=== PATIENT | male | born 1970 | race Caucasian/White ===

== ENCOUNTER 2016-04-08 13:21 | Emergency (ER) | payer OTHER ==
[~2016-04-08] VITALS: Ht 175.3 cm; Wt 87.2 kg
[~2016-04-08 13:21] MED LIST: ALLO100T PO; BENZ100C6 PO; FLUO20CA36 PO; GUAI100S6 PO; WLLSR150 PO
[2016-04-08 13:29] VITALS: TEMP 37.2; Ht 175.3 cm; Wt 87.2 kg
[2016-04-08] MEDS ORDERED: LORAZEPAM 1 MG TAB SL STA (13:41)
[2016-04-08] MEDS ORDERED: ATV/1 PO (15:15)
[2016-04-08 15:30] VITALS: BP 146/90; PULSE 74; O2SAT 97
--- NOTE | 2016-04-08 18:26 | EMERGENCY ROOM VISIT NOTE ---
History Report prepared by Mely: Marlin Mejia Under the Supervision of: Dr. Richy Purvis M.D. First contact with patient: 13:35 Chief Complaint: ANXIETY Stated Complaint: PANIC ATTACK History of Present Illness The patient is a 45 year old male who presents to the Emergency Room with complaints of an episode of anxiety which started today. The patient reports that he was at work when suddenly he began to feel shaky, sweaty, and disoriented. He believes that there was no direct trigger. He mentions that this has happened before. He reports that previously he had been on anxiety and depression medications, but his psychiatric serviced got discontinued, forcing him to wean off his medication. He used to take Prozac and Wellbutrin regularly and Xanax as needed. He estimates that he has not had a Xanax in 6-8 months. The patient drove himself to the ED, but reports that he is still worked up. He reports that he recently had a cold with cough and congestion. He states that due to his problems with alcohol in the past, he does not drink often anymore, but reports that he had some alcohol a couple days ago because he was feeling "worked up". The patient denies any drug use today. Pt denies LOC, headache, fevers, chills, visual changes, neck pain, chest pain, breathing difficulties, nausea, vomiting, abdominal pain, back pain, melena, hematochezia, urinary symptoms, numbness, weakness, lymphadenopathy, rash, or other complaints. Source of History: patient Onset: earlier today Position: other (global) Quality: other (anxiety) Timing: other (epi) Associated Symptoms: + diaphoresis Note: Pt felt shaky and disoriented. Review of Systems See HPI for pertinent positives and negatives. A total of ten systems were reviewed and were otherwise negative. Past Medical & Surgical Medical Problems: (1) ALCOH DEP NEC/NOS-UNSPEC (2) ALCOHOL WITHDRAWAL (3) ANXIETY STATE NOS (4) Cellulitis (5) Gout Family History Patient reports no known family medical history. Social History Smoking Status: Never Smoker Alcohol Use: occasionally Drug Use: none Marital Status: single Housing Status: lives alone Occupation Status: employed Current/Historical Medications Scheduled Allopurinol (Zyloprim), 100 MG PO BID Bupropion HCl (Bupropion HCl Sr), 150 MG PO BID Scheduled PRN Lorazepam (Ativan), 1 MG PO Q6H PRN for Anxiety/Agitation Allergies Coded Allergies: No Known Allergies (Unverified , 04/08/16) Physical Exam Vital Signs Date Time Temp Pulse Resp B/P Pulse Ox O2 Delivery O2 Flow Rate FiO2 04/08/16 15:30 74 20 146/90 97 04/08/16 13:29 37.2 78 20 165/98 99 Room Air Physical Exam GENERAL: Awake, alert, anxious appearing, no distress HENT: Normocephalic, atraumatic. TM's normal. Oropharynx unremarkable. EYES: PERRL. EOMI. Normal conjunctiva. Sclera non-icteric. NECK: Supple. No nuchal rigidity. FROM. No JVD or bruit. RESPIRATORY: CTA CARDIAC: RRR. No murmur. ABDOMEN: Soft, non distended. No tenderness to palpation. No rebound or guarding. No masses. MUSCULOSKELETAL: Unremarkable. No edema. No discoloration. Gross motor strength symmetric. NEURO: Cranial nerves 2-12 grossly intact. Normal sensorium. No sensory or motor deficits noted. Speech normal. No pronator drift. SKIN: No rash or jaundice noted. LYMPH: No adenopathy. PSYCH: Anxious mood. Flat affect. No suicidal ideation. No homicidal ideation. Medical Decision & Procedures Medications Administered Medications (Trade) Dose Ordered Sig/Elvis Route Start Time Stop Time Status Last Admin Dose Admin Lorazepam (Ativan Tab) 2 mg NOW STAT SL 04/08/16 13:41 04/08/16 13:42 DC 04/08/16 13:54 2 MG ED Course 1341: The patient was evaluated in room A7. A complete history and physical exam was performed. Lorazepam 2 mg SL. 1511: I reevaluated the patient. Discussed results and discharge instructions: He verbalized understanding and agreement. The patient is ready for discharge. Medical Decision Prior records/ancillary studies reviewed. Triage Nursing notes reviewed and agree them. The patient's history was concerning for possible psychiatric disturbance. Differential diagnosis: Etiologies such as mood disorder, infection, hypoglycemia, electrolyte abnormalities, cardiac sources, intracerebral event, toxicologic, neurologic, as well as others were entertained. Physical examination: The physical examination was performed as above and was completely benign. No emergent medical pathologies were noted. ER treatment provided: Ativan 2 mg sublingual On reassessment the patient felt significantly better. Diagnostic interpretation by me: No diagnostic studies were performed based upon the history and physical examination. The patient has a history of anxiety. He has been out of his medications because his psychiatric providers were no longer available. Case management with the patient and arrange for outpatient follow-up. I did ask the patient follow-up with his primary physician. He felt much better with the Ativan. He has not been drinking any significant amounts of alcohol. The patient was offered a small prescription for that any case he has another panic attack the patient felt comfortable with this. He has been on Xanax in the past. He is not suicidal or homicidal. I gave my usual and customary discussion regarding this issue. By the evaluation outlined above emergent etiologies such as infection, hypoglycemia, electrolyte abnormalities, cardiac sources, intracerebral event, toxicologic, neurologic,as well as others were deemed relatively unlikely. It appears the patient is dealing with a psychiatric disturbance. The patient was informed about the findings as listed above. All questions were answered and he was pleased with the treatment. Return instructions were outlined and the patient was discharged in stable condition. Outpatient prescription management: Ativan Referral: Outpatient services were arranged by case management, the patient will follow- up this week or return to the emergency department if symptoms worsen. The patient was referred back to his primary care physician for follow-up in 2 to 3 days for a recheck of the current condition. The chart was completed utilizing [employer] Speech voice recognition software. Grammatical errors, random word insertions, pronoun errors, and incomplete sentences are an occasional consequence of this system due to software limitations, ambient noise, and hardware issues. Any formal questions or concerns about the content, text, or information contained within the body of this dictation should be directly addressed to the physician for clarification. [place] Drug Monitoring Program Search Results: patient reviewed within database, no issues identified Impression Primary Impression: Mood disorder Scribe Attestation The scribe's documentation has been prepared under my direction and personally reviewed by me in its entirety. I confirm that the note above accurately reflects all work, treatment, procedures, and medical decision making performed by me. Departure Information Dispostion Home / Self-Care Prescriptions Lorazepam (ATIVAN) 1 Mg Tab 1 MG PO Q6H Y for Anxiety/Agitation, #10 TAB Prov: Richy Purvis MD 04/08/16 Referrals Librado Gordon MD (PCP) Forms HOME CARE DOCUMENTATION FORM, IMPORTANT VISIT INFORMATION, Work Instructions Patient Instructions My [facility] Additional Instructions PSYCHIATRIC INSTRUCTIONS: Ativan 1 mg : Take one every 6 hours as needed for severe anxiety. Do not drive if taking. May cause drowsiness. Do not take if you are at work or doing any activity where being under the influence may be dangerous. Return to the ER for severe anxiety or depression, thoughts of hurting yourself or others, inability to function, hallucinations, worsening of your condition, or as needed. Follow up with outpatient services as arranged by psychiatry/mental health. Follow up with your primary care physician this week for a recheck of your current condition and continued care.
== END 2016-04-08 15:50 | disposition home or self-care (01) ==
LOC: C.EDB 13:23 → C.EDA 15:50
DX: F39 Unspecified mood [affective] disorder (principal)

== ENCOUNTER 2017-01-19 20:15 | Emergency (ER) | payer OTHER ==
[~2017-01-19] VITALS: Ht 172.7 cm; Wt 78.7 kg
[2017-01-19 20:15] VITALS: TEMP 37; Ht 172.7 cm; Wt 78.7 kg
[~2017-01-19 20:15] MED LIST changes: -BENZ100C6 PO; -FLUO20CA36 PO; -GUAI100S6 PO
--- NOTE | 2017-01-19 20:33 | EMERGENCY ROOM VISIT NOTE ---
History Report prepared by Mely: Sung Ramsay Under the Supervision of: Dr. Héctor Pearl M.D. First contact with patient: 20:19 Stated Complaint: MENTAL HEALTH 302 History of Present Illness The patient is a 46 year old male who presents to the Emergency Room with complaints of an episode of overdose occurring today. Per girlfriend, the patient took too much of his medications today in order to kill himself. The patient states that he did not try to kill himself, and instead notes that his girlfriend is being dramatic. Per nursing note, the patient took full bottles of Trazodone, Prozac, and Wellbutrin. The patient reports that he was drinking today, and drank 8 beers. He states that the last time he drank was a month ago, and that he does not regularly drink. He notes that he has been called an alcoholic in the past. He reports that he has a history of pancreatitis. HPI limited secondary to alcohol intoxication Source of History: patient History Limited By: intoxication (alcohol) Position: other (global) Quality: other (overdose) Timing: other (an episode) Review of Systems ROS limited secondary to alcohol intoxication. Past Medical & Surgical Medical Problems: (1) ALCOH DEP NEC/NOS-UNSPEC (2) ALCOHOL WITHDRAWAL (3) ANXIETY STATE NOS (4) Cellulitis (5) Gout Family History Patient reports no known family medical history. Social History Smoking Status: Never Smoker Alcohol Use: occasionally Drug Use: none Marital Status: single Housing Status: lives alone Occupation Status: employed Current/Historical Medications Scheduled Bupropion Hcl (Bupropion Hcl Xl), 150 MG PO QAM Fluoxetine Hcl (Prozac), 40 MG PO DAILY Trazodone Hcl (Trazodone), 100 MG PO HS Scheduled PRN Lorazepam (Lorazepam), 0.5 MG PO DAILY PRN for Anxiety Allergies Coded Allergies: No Known Allergies (Unverified , 04/08/16) Physical Exam Vital Signs Date Time Temp Pulse Resp B/P (MAP) Pulse Ox O2 Delivery O2 Flow Rate FiO2 01/19/17 21:48 98 Nasal Cannula 2.0 01/19/17 21:48 71 16 117/60 99 Room Air 01/19/17 21:47 89 Room Air 01/19/17 21:41 72 18 92 Room Air 01/19/17 20:31 96 Room Air 01/19/17 20:23 62 01/19/17 20:15 37.0 61 20 135/79 96 Room Air Physical Exam GENERAL: Patient is in no acute distress. Alcohol on his breath. HEENT: No acute trauma, normocephalic atraumatic, mucous membranes moist, no nasal congestion, no scleral icterus. NECK: No stridor, no adenopathy, no meningismus, trachea is midline. LUNGS: Clear to auscultation bilaterally, no wheeze, no rhonchi, breath sounds equal. HEART: Without murmurs gallops or rubs, regular rate and rhythm. ABDOMEN: Soft, nontender, bowel sounds positive, no hernias, no peritonitis. EXTREMITIES: No cyanosis or edema, full range of motion of all the joints without pain or difficulty, no signs for acute trauma. NEUROLOGIC: Moderately intoxicated with alcohol, awake and alert, no focal motor deficits. PSYCH: Cooperative, denies being suicidal, appears intoxicated with alcohol. SKIN: No rash, no jaundice, no diaphoresis. Medical Decision & Procedures Laboratory Results 01/19/17 20:43 01/19/17 20:43 Test 01/19/17 20:43 01/19/17 21:00 Red Blood Count 4.63 M/uL (4.7-6.1) Mean Corpuscular Volume 87.7 fL (80-100) Mean Corpuscular Hemoglobin 29.4 pg (25-34) Mean Corpuscular Hemoglobin Concent 33.5 g/dl (32-36) RDW Standard Deviation 44.5 fL (36.4-46.3) RDW Coefficient of Variation 13.9 % (11.5-14.5) Mean Platelet Volume 9.2 fL (7.4-10.4) Anion Gap 7.0 mmol/L (3-11) Est Creatinine Clear Calc Drug Dose 112.6 ml/min Estimated GFR () 125.3 Estimated GFR (Non- 108.1 BUN/Creatinine Ratio 15.0 (10-20) Calcium Level 8.6 mg/dl (8.5-10.1) Total Bilirubin 0.2 mg/dl (0.2-1) Aspartate Amino Transf (AST/SGOT) 20 U/L (15-37) Alanine Aminotransferase (ALT/SGPT) 23 U/L (12-78) Alkaline Phosphatase 32 U/L (45-117) Total Protein 7.4 gm/dl (6.4-8.2) Albumin 3.9 gm/dl (3.4-5.0) Globulin 3.5 gm/dl (2.5-4.0) Albumin/Globulin Ratio 1.1 (0.9-2) Lipase 157 U/L (73-393) Thyroid Stimulating Hormone (TSH) 0.566 uIu/ml (0.300-4.500) Salicylates Level < 1.7 mg/dl (2.8-20) Acetaminophen Level < 2 ug/ml (10-30) Ethyl Alcohol mg/dL 367.5 mg/dl (0-3) Urine Color YELLOW Urine Appearance CLEAR (CLEAR) Urine pH 6.0 (4.5-7.5) Urine Specific [employer] 1.010 (1.000-1.030) Urine Protein NEG (NEG) Urine Glucose (UA) NEG (NEG) Urine Ketones NEG (NEG) Urine Occult Blood NEG (NEG) Urine Nitrite NEG (NEG) Urine Bilirubin NEG (NEG) Urine Urobilinogen NEG (NEG) Urine Leukocyte Esterase NEG (NEG) Urine Opiates Screen NEG (NEG) Urine Methadone, Qualitative NEG (NEG) Urine Barbiturates NEG (NEG) Urine Phencyclidine (PCP) Level NEG (NEG) Ur Amphetamine/Methamphetamine NEG (NEG) MDMA (Ecstasy) Screen NEG (NEG) Urine Benzodiazepines Screen NEG (NEG) Urine Cocaine Metabolite NEG (NEG) Urine Marijuana (THC) NEG (NEG) Laboratory results reviewed by me. Medications Administered Medications (Trade) Dose Ordered Sig/Elvis Route Start Time Stop Time Status Last Admin Dose Admin Haloperidol Lactate (Haldol Inj) 10 mg NOW STAT IM 01/19/17 21:07 01/19/17 21:09 DC 01/19/17 21:14 10 MG Lorazepam (Ativan Inj) 1 mg NOW STAT IM 01/19/17 21:07 01/19/17 21:09 DC 01/19/17 21:14 1 MG ED Course 2019: The patient was evaluated in room B3. A complete history and physical exam was performed. 2103: I reevaluated and updated the patient. He is starting to fight security and is going to need to be sedated. 2106: Lorazepam 1mg IM, Haldol Inj 1mg IM 2118: The patient was moved from room B3 to A5. 2246: I reevaluated and updated the patient. 230: The patient is currently under evaluation for a 302. 0030: The patient was signed out to Dr. Mccrary at the change of shift. Medical Decision Differential diagnoses include: alcohol / drug abuse, suicidal ideation, pancreatitis, liver failure, electrolyte imbalance, thyroid disorder, suicidality. There is no leukocytosis or concerning anemia. No significant electrolyte abnormality, kidney failure, hepatitis or pancreatitis. The patient appears to be in a euthyroid state. Aspirin and Tylenol levels are undetectable. Urine tox is negative. Urinalysis does not show infection. Alcohol level was elevated at 367. The patient presents with a 302 petition against him. He denies being suicidal , he denies taking pills in overdose. His girlfriend is concerned that he was trying to harm himself with medications over the last couple of days. The patient is quite intoxicated and will need to become sober before he can be truly assessed psychiatrically. Of note, the patient became combative during his ER stay. He did require some physical and chemical restraint. He received IM Haldol and IM Ativan. Limb restraints were applied for a short time and then removed once the medications took effect. He is now resting comfortably. He is now again cooperative. The patient will eventually be seen by the psychiatry team. Right now, he is intoxicated and sedated. His care is being assumed by Dr. Mccrary at the change of shift. Medication Reconcilliation Current Medication List: was personally reviewed by me Blood Pressure Screening Patient's blood pressure: Elevated blood pressure Blood pressure disposition: Elevated BP felt to be situational Impression Primary Impression: Alcohol abuse Additional Impression: 302 evaluaton Scribe Attestation The scribe's documentation has been prepared under my direction and personally reviewed by me in its entirety. I confirm that the note above accurately reflects all work, treatment, procedures, and medical decision making performed by me. Departure Information Dispostion Still a Patient (The patient was signed out to Dr. Mccrary at the change of shift.) Referrals Librado Gordon MD (PCP) Problem Qualifiers
[2017-01-19] MEDS ORDERED: BUPR150T5 PO (20:51)
[2017-01-19] MEDS ORDERED: PRZ/40 PO (20:51)
[2017-01-19] MEDS ORDERED: ATV5X PO (20:51)
[2017-01-19] MEDS ORDERED: TRAZ100T29 PO (20:51)
[2017-01-19 21:05] LABS: HEMATOCRIT 40.6 % (42-52); MEAN CELL VOLUME 87.7 fL (80-100); MEAN CORPUSCULAR HEMOGLOBIN 29.4 pg (25-34); MEAN CORPUSCULAR HGB CONC 33.5 g/dl (32-36); MEAN PLATELET VOLUME 9.2 fL (7.4-10.4); PLATELET COUNT 275 K/uL (130-400); RED BLOOD COUNT 4.63 M/uL (4.7-6.1)
[2017-01-19] MEDS ORDERED: LORAZEPAM 2 MG/ML 1 ML VIAL IM STA (21:07)
[2017-01-19] MEDS ORDERED: HALOPERIDOL LACTATE 5 MG/ML 1 ML VIAL IM STA (21:07)
[2017-01-19 21:17] LABS: URINE APPEARANCE CLEAR (CLEAR); URINE BILIRUBIN NEG (NEG); URINE COLOR YELLOW; URINE NITRITE NEG (NEG); UROBILINOGEN NEG (NEG); ZZUR CULT IF INDIC CLEAN CATCH NO
[2017-01-19 21:21] LABS: CALCIUM 8.6 mg/dl (8.5-10.1); CREATININE 0.81 mg/dl (0.60-1.40); POTASSIUM 3.8 mmol/L (3.5-5.1)
[2017-01-19 21:32] LABS: ACETAMINOPHEN < 2 ug/ml (10-30)
[2017-01-19 21:32] LABS: MANUAL MICROSCOPIC REQUIRED? NO; REVIEW REQ? NO
[2017-01-19 21:33] LABS: ALB/GLOB RATIO 1.1 (0.9-2); THYROID STIMULATING HORMONE 0.566 uIu/ml (0.300-4.500)
[2017-01-19 21:48] VITALS: O2SAT 98
[2017-01-19 21:54] LABS: BENZODIAZEPINE, URINE NEG (NEG); COCAINE,URINE NEG (NEG); PHENCYCLIDINE, URINE NEG (NEG)
--- NOTE | 2017-01-20 03:29 | EMERGENCY ROOM VISIT NOTE ---
ED Visit Note Patient currently stable throughout emergency department evaluation and extended -stay. Patient will be evaluated by the psychiatry counselors at approximately 7:30 AM. Disposition for this patient will then be made. There've been no issues throughout evaluation this evening Problem List Medical Problems: (1) ALCOH DEP NEC/NOS-UNSPEC Status: Chronic (2) ALCOHOL WITHDRAWAL Status: Chronic (3) ANXIETY STATE NOS Status: Chronic (4) Cellulitis Status: Resolved (5) Gout Status: Resolved Current/Historical Medications Scheduled Bupropion Hcl (Bupropion Hcl Xl), 150 MG PO QAM Fluoxetine Hcl (Prozac), 40 MG PO DAILY Trazodone Hcl (Trazodone), 100 MG PO HS Scheduled PRN Lorazepam (Lorazepam), 0.5 MG PO DAILY PRN for Anxiety Allergies Coded Allergies: No Known Allergies (Unverified , 04/08/16) Vital Signs Date Time Temp Pulse Resp B/P (MAP) Pulse Ox O2 Delivery O2 Flow Rate FiO2 01/20/17 02:22 61 16 137/82 93 Room Air 01/20/17 00:48 67 16 118/57 98 Nasal Cannula 2.0 01/20/17 00:08 68 01/19/17 23:16 71 16 117/60 96 Nasal Cannula 2.0 01/19/17 21:48 98 Nasal Cannula 2.0 01/19/17 21:48 71 16 117/60 99 Room Air 01/19/17 21:47 89 Room Air 01/19/17 21:41 72 18 92 Room Air 01/19/17 20:31 96 Room Air 01/19/17 20:23 62 01/19/17 20:15 37.0 61 20 135/79 96 Room Air Laboratory Results 01/19/17 20:43 01/19/17 20:43 Test 01/19/17 20:43 01/19/17 21:00 Red Blood Count 4.63 M/uL (4.7-6.1) Mean Corpuscular Volume 87.7 fL (80-100) Mean Corpuscular Hemoglobin 29.4 pg (25-34) Mean Corpuscular Hemoglobin Concent 33.5 g/dl (32-36) RDW Standard Deviation 44.5 fL (36.4-46.3) RDW Coefficient of Variation 13.9 % (11.5-14.5) Mean Platelet Volume 9.2 fL (7.4-10.4) Anion Gap 7.0 mmol/L (3-11) Est Creatinine Clear Calc Drug Dose 112.6 ml/min Estimated GFR () 125.3 Estimated GFR (Non- 108.1 BUN/Creatinine Ratio 15.0 (10-20) Calcium Level 8.6 mg/dl (8.5-10.1) Total Bilirubin 0.2 mg/dl (0.2-1) Aspartate Amino Transf (AST/SGOT) 20 U/L (15-37) Alanine Aminotransferase (ALT/SGPT) 23 U/L (12-78) Alkaline Phosphatase 32 U/L (45-117) Total Protein 7.4 gm/dl (6.4-8.2) Albumin 3.9 gm/dl (3.4-5.0) Globulin 3.5 gm/dl (2.5-4.0) Albumin/Globulin Ratio 1.1 (0.9-2) Lipase 157 U/L (73-393) Thyroid Stimulating Hormone (TSH) 0.566 uIu/ml (0.300-4.500) Salicylates Level < 1.7 mg/dl (2.8-20) Acetaminophen Level < 2 ug/ml (10-30) Ethyl Alcohol mg/dL 367.5 mg/dl (0-3) Urine Color YELLOW Urine Appearance CLEAR (CLEAR) Urine pH 6.0 (4.5-7.5) Urine Specific [place] 1.010 (1.000-1.030) Urine Protein NEG (NEG) Urine Glucose (UA) NEG (NEG) Urine Ketones NEG (NEG) Urine Occult Blood NEG (NEG) Urine Nitrite NEG (NEG) Urine Bilirubin NEG (NEG) Urine Urobilinogen NEG (NEG) Urine Leukocyte Esterase NEG (NEG) Urine Opiates Screen NEG (NEG) Urine Methadone, Qualitative NEG (NEG) Urine Barbiturates NEG (NEG) Urine Phencyclidine (PCP) Level NEG (NEG) Ur Amphetamine/Methamphetamine NEG (NEG) MDMA (Ecstasy) Screen NEG (NEG) Urine Benzodiazepines Screen NEG (NEG) Urine Cocaine Metabolite NEG (NEG) Urine Marijuana (THC) NEG (NEG) Medications Administered Medications (Trade) Dose Ordered Sig/Elvis Route Start Time Stop Time Status Last Admin Dose Admin Haloperidol Lactate (Haldol Inj) 10 mg NOW STAT IM 01/19/17 21:07 01/19/17 21:09 DC 01/19/17 21:14 10 MG Lorazepam (Ativan Inj) 1 mg NOW STAT IM 01/19/17 21:07 01/19/17 21:09 DC 01/19/17 21:14 1 MG Departure Information Impression Primary Impression: Alcohol abuse Additional Impression: 302 evaluaton Dispostion Still a Patient Referrals Librado Gordon MD (PCP) Patient Instructions [facility] Problem Qualifiers
[2017-01-20] MEDS ORDERED: BuPROPion XL 150 MG TABCR PO SCH (09:00)
[2017-01-20] MEDS ORDERED: FLUOXETINE HCL 20 MG CAP PO SCH (09:00)
[2017-01-20] MEDS ORDERED: BENZTROPINE MESYLATE 1 MG TAB PO SCH (09:00)
[2017-01-20] MEDS ORDERED: THIAMINE HCL 100 MG TAB PO SCH (09:00)
--- NOTE | 2017-01-20 11:02 | EMERGENCY ROOM VISIT NOTE ---
ED Visit Note First contact with patient: 10:59 Received patient in signout from Dr. Mccrary. History and physical verified by me. Briefly the patient is here for 302 evaluation and was combative upon arrival to the emergency department last night and ended up receiving Haldol and Ativan. This morning on my evaluation the patient is very remorseful for his actions in the emergency department last evening. He denies anything he did last evening was a suicide attempt and is able to explain that he normally has empty pill bottles around his house and understands why his girlfriend sent him to the emergency department. He is remorseful that everything accumulated with this visit. He denies being suicidal or homicidal. This morning he was given his morning medications along with Cogentin. I do feel that the patient is most likely well enough to be discharged home. His alcohol level did clear. He was evaluated by case management as well as 3 S. liaison independently who also agreed that the patient was safe enough to be discharged home. I denied the 302 evaluation based on this patient's explanation of what happened the previous evening. He is going to follow-up with outpatient psychiatry and I strongly recommended he stop drinking alcohol. In addition he was also given o/ p information for alcohol rehabilitation. Problem List Medical Problems: (1) ALCOH DEP NEC/NOS-UNSPEC Status: Chronic (2) ALCOHOL WITHDRAWAL Status: Chronic (3) ANXIETY STATE NOS Status: Chronic (4) Cellulitis Status: Resolved (5) Gout Status: Resolved Current/Historical Medications Scheduled Bupropion Hcl (Bupropion Hcl Xl), 150 MG PO QAM Fluoxetine Hcl (Prozac), 40 MG PO DAILY Trazodone Hcl (Trazodone), 100 MG PO HS Scheduled PRN Lorazepam (Lorazepam), 0.5 MG PO DAILY PRN for Anxiety Allergies Coded Allergies: No Known Allergies (Unverified , 04/08/16) Vital Signs Date Time Temp Pulse Resp B/P (MAP) Pulse Ox O2 Delivery O2 Flow Rate FiO2 01/20/17 07:32 59 01/20/17 07:32 62 18 104/64 01/20/17 04:16 59 18 108/67 93 Room Air 01/20/17 04:12 68 01/20/17 02:22 61 16 137/82 93 Room Air 01/20/17 00:48 67 16 118/57 98 Nasal Cannula 2.0 01/20/17 00:08 68 01/19/17 23:16 71 16 117/60 96 Nasal Cannula 2.0 01/19/17 21:48 98 Nasal Cannula 2.0 01/19/17 21:48 71 16 117/60 99 Room Air 01/19/17 21:47 89 Room Air 01/19/17 21:41 72 18 92 Room Air 01/19/17 20:31 96 Room Air 01/19/17 20:23 62 01/19/17 20:15 37.0 61 20 135/79 96 Room Air Laboratory Results 01/19/17 20:43 01/19/17 20:43 Test 01/19/17 20:43 01/19/17 21:00 01/20/17 09:01 Red Blood Count 4.63 M/uL (4.7-6.1) Mean Corpuscular Volume 87.7 fL (80-100) Mean Corpuscular Hemoglobin 29.4 pg (25-34) Mean Corpuscular Hemoglobin Concent 33.5 g/dl (32-36) RDW Standard Deviation 44.5 fL (36.4-46.3) RDW Coefficient of Variation 13.9 % (11.5-14.5) Mean Platelet Volume 9.2 fL (7.4-10.4) Anion Gap 7.0 mmol/L (3-11) Est Creatinine Clear Calc Drug Dose 112.6 ml/min Estimated GFR () 125.3 Estimated GFR (Non- 108.1 BUN/Creatinine Ratio 15.0 (10-20) Calcium Level 8.6 mg/dl (8.5-10.1) Total Bilirubin 0.2 mg/dl (0.2-1) Aspartate Amino Transf (AST/SGOT) 20 U/L (15-37) Alanine Aminotransferase (ALT/SGPT) 23 U/L (12-78) Alkaline Phosphatase 32 U/L (45-117) Total Protein 7.4 gm/dl (6.4-8.2) Albumin 3.9 gm/dl (3.4-5.0) Globulin 3.5 gm/dl (2.5-4.0) Albumin/Globulin Ratio 1.1 (0.9-2) Lipase 157 U/L (73-393) Thyroid Stimulating Hormone (TSH) 0.566 uIu/ml (0.300-4.500) Salicylates Level < 1.7 mg/dl (2.8-20) Acetaminophen Level < 2 ug/ml (10-30) Urine Color YELLOW Urine Appearance CLEAR (CLEAR) Urine pH 6.0 (4.5-7.5) Urine Specific Kimball 1.010 (1.000-1.030) Urine Protein NEG (NEG) Urine Glucose (UA) NEG (NEG) Urine Ketones NEG (NEG) Urine Occult Blood NEG (NEG) Urine Nitrite NEG (NEG) Urine Bilirubin NEG (NEG) Urine Urobilinogen NEG (NEG) Urine Leukocyte Esterase NEG (NEG) Urine Opiates Screen NEG (NEG) Urine Methadone, Qualitative NEG (NEG) Urine Barbiturates NEG (NEG) Urine Phencyclidine (PCP) Level NEG (NEG) Ur Amphetamine/Methamphetamine NEG (NEG) MDMA (Ecstasy) Screen NEG (NEG) Urine Benzodiazepines Screen NEG (NEG) Urine Cocaine Metabolite NEG (NEG) Urine Marijuana (THC) NEG (NEG) Ethyl Alcohol mg/dL 135.2 mg/dl (0-3) Medications Administered Medications (Trade) Dose Ordered Sig/Elvis Route Start Time Stop Time Status Last Admin Dose Admin Haloperidol Lactate (Haldol Inj) 10 mg NOW STAT IM 01/19/17 21:07 01/19/17 21:09 DC 01/19/17 21:14 10 MG Lorazepam (Ativan Inj) 1 mg NOW STAT IM 01/19/17 21:07 01/19/17 21:09 DC 01/19/17 21:14 1 MG Folic Acid (Folvite Tab) 1 mg QAM PO 01/20/17 09:00 02/19/17 08:59 01/20/17 09:28 1 MG Thiamine HCl (Vitamin B-1 Tab) 100 mg QAM PO 01/20/17 09:00 02/19/17 08:59 01/20/17 09:28 100 MG Benztropine Mesylate (Cogentin Tab) 2 mg DAILY PO 01/20/17 09:00 18 08:59 01/20/17 09:27 2 MG Bupropion HCl (Wellbutrin-Xl Tab) 150 mg NOW PO 01/20/17 09:00 02/19/17 08:59 01/20/17 09:28 150 MG Fluoxetine HCl (Prozac Cap) 40 mg QAM PO 01/20/17 09:00 02/19/17 08:59 01/20/17 09:27 40 MG Departure Information Impression Primary Impression: Alcohol abuse Dispostion Home / Self-Care Condition GOOD Referrals Librado Sue MD (PCP) Forms HOME CARE DOCUMENTATION FORM, School Instructions, Work Instructions, IMPORTANT VISIT INFORMATION Patient Instructions Alcohol Intoxication - [facility], [facility], Haloperidol injection Additional Instructions Return if symptoms worsen Recommend cessation of alcohol Increase fluids next 48 hours You have been examined and treated today on an emergency basis only. This is not a substitute for, or an effort to provide, complete comprehensive medical care. It is impossible to recognize and treat all injuries or illnesses in a single emergency department visit. It is therefore important that you follow up closely with Dr sue. Call as soon as possible for an appointment. Thank you for your time and consideration. I look forward to speaking with you again soon. Please don't hesitate to call us if you have any questions.
[2017-01-20 11:19] VITALS: BP 129/75; PULSE 62; O2SAT 98
== END 2017-01-20 11:21 | disposition home or self-care (01) ==
LOC: EDBD 20:15 → C.EDB 20:16 → C.EDA 01-20 11:21
DX: F10.120 Alcohol abuse with intoxication, uncomplicated (principal); F41.9 Anxiety disorder, unspecified

== ENCOUNTER 2017-06-21 13:13 | Emergency (ER) | payer OTHER ==
[~2017-06-21] VITALS: Ht 175.3 cm; Wt 81.8 kg
[~2017-06-21 13:13] MED LIST changes: -ALLO100T PO; +ATV5X PO; +BUPR150T5 PO; +PRZ/40 PO; +TRAZ100T29 PO; -WLLSR150 PO
[2017-06-21 13:16] VITALS: TEMP 36.6; Ht 175.3 cm; Wt 81.8 kg
[2017-06-21] MEDS ORDERED: HYDR2.5C37 TOP (13:35)
[2017-06-21] MEDS ORDERED: AMOX875T PO (13:35)
--- NOTE | 2017-06-21 13:41 | EMERGENCY ROOM VISIT NOTE ---
History Report prepared by Mely: Marlin Mejia Under the Supervision of: Dr. Dennis Travis M.D. First contact with patient: 13:19 Chief Complaint: OTHER COMPLAINT Stated Complaint: ANAL FISSURE?? History of Present Illness The patient is a 46 year old male who presents to the Emergency Room with complaints of worsening anal fissure pain starting 8-10 days ago. The patient had an anal fissure 2 years ago which required antibiotics to treat. He had a harder bowel movement 8-10 days ago and thinks that he has an anal fissure again. He is having constant pain and feels that it might be infected. He has pain with bowel movements. He denies any bleeding, discharge, fever, abdominal pain, chest pain, SOB, or headache. He denies drinking heavily. He denies any medical problems. Source of History: patient Onset: 8-10 days ago Position: other (anus) Quality: other (fissure) Timing: worsening Modifying Factors (Worsening): movement Associated Symptoms: No fevers, No headache, No chest pain, No SOB, No abdominal pain Review of Systems See HPI for pertinent positives & negatives. A total of 10 systems reviewed and were otherwise negative. Past Medical & Surgical Medical Problems: (1) ALCOH DEP NEC/NOS-UNSPEC (2) ALCOHOL WITHDRAWAL (3) ANXIETY STATE NOS (4) Cellulitis (5) Gout Old medical records were reviewed. Nurse's notes were reviewed and I agree with. Family History Patient reports no known family medical history. Social History Smoking Status: Never Smoker Smokeless Tobacco Use: No Alcohol Use: other ("very little") Drug Use: none Occupation Status: employed Current/Historical Medications Scheduled Amoxicillin & Pot Clavulanate (Augmentin 875-125 mg), 875 MG PO BID Bupropion Hcl (Bupropion Hcl Xl), 150 MG PO QAM Fluoxetine Hcl (Prozac), 40 MG PO DAILY Hydrocortisone 2.5% (Rectal) (Anusol-Hc 2.5%), 1 APPLN TOP BID Trazodone Hcl (Trazodone), 100 MG PO HS Scheduled PRN Lorazepam (Lorazepam), 0.5 MG PO DAILY PRN for Anxiety Allergies Coded Allergies: No Known Allergies (Unverified , 04/08/16) Physical Exam Vital Signs Date Time Temp Pulse Resp B/P (MAP) Pulse Ox O2 Delivery O2 Flow Rate FiO2 06/21/17 13:47 72 16 127/63 95 06/21/17 13:16 36.6 71 18 130/73 99 Room Air Physical Exam General: Non-ill appearing middle age male in no acute distress. HEENT: Normal cephalic atraumatic. Pupils are equal round and reactive to light. Extraocular movements are intact. Oropharynx is pink with moist mucous membranes. No swelling of the mouth lips or tongue. Neck: Supple with a midline trachea. No meningeal signs or stiffness, no JVD or bruits. No Stridor. Chest: Clear to auscultation bilaterally. No wheezes or rhonchi. No increased work of breathing. Heart: regular rate and rhythm. Abdomen: Soft nontender, nondistended without rebound guarding or rigidity. Rectal: Anal tag at 12 o'clock, tender at 6 o'clock, no masses or fluctuance felt, suspected anal fissure, Hemoccult negative, no pus discharge. Extremities: No cyanosis clubbing or edema. No calf tenderness or assymetry Spine/Back. Non tender to palpation. No CVA tenderness Skin: Good turgor without rashes. Neurologic exam: Cranial nerves two through 12 are intact. Motor and sensation are intact and symmetrical throughout. Medical Decision & Procedures Medications Administered Medications (Trade) Dose Ordered Sig/Elvis Route Start Time Stop Time Status Last Admin Dose Admin Amoxicillin/ Clavulanate Potassium (Augmentin 875MG Home Pack) 1 homepack UD ONCE PO 06/21/17 13:45 06/21/17 13:46 DC 06/21/17 13:43 1 HOMEPACK ED Course 1321: Past medical records reviewed. The patient was evaluated in room C5, and a complete history and physical examination were performed. I discussed the results and treatment plan with him. He verbalized agreement of the treatment plan. The patient was discharged home. 1345: Augmentin 875 mg 1 homepack PO. Medical Decision Differentials include, but are not limited to; anal fissure, abscess, hemorrhoid. This patient comes in after having rectal pain it feels like a previous anal fissure. He is otherwise asymptomatic he has had no bleeding. It hurts more when he has a bowel movement. He has no abdominal symptoms there has been no trauma. On rectal exam, there is no masses or fluctuance and he is tender around 6:00 . he has some irritation but I do not see a definite fissure although it may be higher up. He tells me last time he got an infection but he has never had any abscess or drainage. At this point, I do not see any definite abscess. I will have him use sitz baths and started him on Augmentin 875 mg twice a day. He also use Anusol HC. I did offer to do a CAT scan but he would rather see if the treatment works for us I think this is a very reasonable. He was encouraged to return if : increasing pain, fever or chills, worsening of symptoms, any new problems or concerns. He is happy the plan and discharged to home. He should follow-up with his doctor this week for recheck. Medication Reconcilliation Current Medication List: was personally reviewed by me Blood Pressure Screening Patient's blood pressure: Elevated blood pressure Blood pressure disposition: Elevated BP felt to be situational Impression Primary Impression: Anal fissure Scribe Attestation The scribe's documentation has been prepared under my direction and personally reviewed by me in its entirety. I confirm that the note above accurately reflects all work, treatment, procedures, and medical decision making performed by me. Departure Information Dispostion Home / Self-Care Prescriptions Hydrocortisone 2.5% (Rectal) (ANUSOL-HC 2.5%) 2.5 % Cre 1 APPLN TOP BID for 7 Days, #30 GM 1 Refill Prov: Dennis Travis M.D. 06/21/17 Amoxicillin & Pot Clavulanate (Augmentin 875-125 mg) 1 Tab Tab 875 MG PO BID for 7 Days, #14 TAB Prov: Dennis Travis M.D. 06/21/17 Referrals No Doctor, Assigned (PCP) Forms HOME CARE DOCUMENTATION FORM, IMPORTANT VISIT INFORMATION, WORK / SCHOOL INSTRUCTIONS Patient Instructions [facility] Additional Instructions Rest. Use a warm sitz bath. Use a stool softener such as [id number] if needed use Augmentin 875 mg twice a day. Use Anusol HC 2 times a day topically Return if: Increasing pain, fever or chills, worsening symptoms, any new problems or concerns
[2017-06-21] MEDS ORDERED: AMOXICIL/CLAVU 875MG HOME PACK PO ONE (13:45)
[2017-06-21 13:47] VITALS: BP 127/63; PULSE 72; O2SAT 95
== END 2017-06-21 13:49 | disposition home or self-care (01) ==
LOC: C.EDB 13:15 → C.EDC 13:49
DX: K60.2 Anal fissure, unspecified (principal); F41.9 Anxiety disorder, unspecified; F10.20 Alcohol dependence, uncomplicated; M10.9 Gout, unspecified; Z79.899 Other long term (current) drug therapy